=== PATIENT | female | born 1950 | race Caucasian/White ===

== ENCOUNTER → 2019-05-29 | Outpatient (CLI) | payer OTHER ==
[~2019-05-29] MED LIST: ANASTROZOLE1 MG PO; ASPIR-TRIN325 MG PO; CELEXA 20 MG TA20 MG PO; GLUCOPHAGE1000 MG PO; HUMALOG100 UNIT/2 SUBQ; IBUPROFEN 600600 M1 PO; LANTUS100 UNIT/M SUBQ; NORCO 5-325 TA1 EACH PO; OXYBUTYNIN 5 MG5 M2 PO; PRINIVIL5 MG PO; SINGULAIR 10 MG10 M1 PO; SPIRIVA INH; SYMBICORT80 MCG/4.1 INH; TOPROL XL25 MG PO
== END ==
LOC: RAD 12:13
DX: Z12.31 Encounter for screening mammogram for malignant neoplasm of breast (principal)